=== PATIENT | female | born 1930 | race Hispanic/Latino ===

== ENCOUNTER 2017-10-21 08:00 | Outpatient (CLI) | payer MEDICARE, OTHER | END 2017-10-21 08:01 | disposition home or self-care (01) | LOC: BICMAMMO 08:00 | PROVIDERS: ATTEND Internal Medicine Hematology & Oncology | DX: N64.59 Other signs and symptoms in breast (principal) | CPT/HCPCS: G0204; G0279; 77066 ==

== ENCOUNTER 2018-01-11 16:46 | Outpatient (CLI) | payer MEDICARE, OTHER | END 2018-01-11 16:47 | disposition home or self-care (01) | LOC: BICRAD 16:46 | PROVIDERS: ATTEND Family Medicine | DX: J32.9 Chronic sinusitis, unspecified (principal) | CPT/HCPCS: 71046 ==

== ENCOUNTER 2018-08-23 05:32 | Emergency (ER) | payer MEDICARE, OTHER ==
[2018-08-23] MEDS ORDERED: Diazepam 5 MG TAB ONE (06:23)
--- NOTE | 2018-08-27 23:28 | EKG ---
Test Reason : ALLERGIC REACTION Blood Pressure : / mmHG Vent. Rate : 075 BPM Atrial Rate : 075 BPM P-R Int : 168 ms QRS Dur : 136 ms QT Int : 438 ms P-R-T Axes : 071 -53 026 degrees QTc Int : 489 ms Sinus rhythm with marked sinus arrhythmia Left axis deviation Right bundle branch block Abnormal ECG Confirmed by SHERYL OQUENDO ([id number]), news videotape editor EARNEST WRIGHT ([id number]) on 08/27/2018 11:28:38 PM Referred By: Confirmed By:SHERYL OQUENDO
== END 2018-08-23 08:01 | disposition home or self-care (01) ==
LOC: ERS 05:32
DX: L29.9 Pruritus, unspecified (principal); R20.2 Paresthesia of skin; T36.8X5A Adverse effect of other systemic antibiotics, initial encounter; I10 Essential (primary) hypertension; Z79.899 Other long term (current) drug therapy
CPT/HCPCS: 93005

== ENCOUNTER 2018-10-31 10:17 | Outpatient (CLI) | payer MEDICARE, OTHER | END 2018-10-31 10:18 | disposition home or self-care (01) | LOC: BICMAMMO 10:17 | PROVIDERS: ATTEND Family Medicine | DX: Z08 Encounter for follow-up examination after completed treatment for malignant neoplasm (principal); Z85.9 Personal history of malignant neoplasm, unspecified; Z85.3 Personal history of malignant neoplasm of breast; Z85.528 Personal history of other malignant neoplasm of kidney | CPT/HCPCS: 77066; G0279 ==

== ENCOUNTER 2019-03-09 11:22 | Emergency (ER) | payer MEDICARE, OTHER ==
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
[2019-03-09] MEDS ORDERED: hydrALAZINE 20 MG/ML VIAL ONE (14:44)
--- NOTE | 2019-03-11 11:19 | EKG ---
Test Reason : Blood Pressure : / mmHG Vent. Rate : 092 BPM Atrial Rate : 092 BPM P-R Int : 182 ms QRS Dur : 124 ms QT Int : 412 ms P-R-T Axes : 065 -65 008 degrees QTc Int : 509 ms Sinus rhythm with Premature atrial complexes Possible Left atrial enlargement Left axis deviation Right bundle branch block Abnormal ECG Confirmed by DR. Amaury KIM ([id number]) on 03/11/2019 11:19:12 AM Referred By: Confirmed By:DR. Amaury KIM
== END 2019-03-09 15:42 | disposition home or self-care (01) ==
LOC: ERS 11:22
DX: I10 Essential (primary) hypertension (principal); Z79.899 Other long term (current) drug therapy; V43.62XA Car passenger injured in collision with other type car in traffic accident, initial encounter
CPT/HCPCS: 71046; 72125; 72128; 93005; 96374; J0360

== ENCOUNTER 2019-07-21 10:12 | Outpatient (CLI) | payer MEDICARE, OTHER ==
--- NOTE | 2019-07-21 14:01 | NM ---
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 No other abnormal areas of tracer localization are seen in the skeleton to suggest metastatic disease . Tracer excretion through the kidneys is within normal limits. IMPRESSION: No scintigraphic evidence of osseous metastatic disease.
== END 2019-07-21 10:13 | disposition home or self-care (01) ==
LOC: NM 10:12
PROVIDERS: ATTEND Internal Medicine Hematology & Oncology
DX: C15.4 Malignant neoplasm of middle third of esophagus (principal); C64.1 Malignant neoplasm of right kidney, except renal pelvis; M25.552 Pain in left hip
CPT/HCPCS: 78306; A9503

== ENCOUNTER 2019-11-07 13:08 | Outpatient (CLI) | payer MEDICARE, OTHER ==
--- NOTE | 2019-11-07 13:37 | MMO ---
Bilateral MAMMO Bilat Diag [facility]. CLINICAL HISTORY: Patient is 89 years old and is seen for diagnostic exam. The patient has no family history of breast cancer. The patient has a history of kidney cancer. The patient has a history of right Ultrasound Guided Core Biopsy in Feb, 2016 - malignant and right Excisional Biopsy in 2016 - malignant. VIEWS: The views performed were: bilateral craniocaudal with tomosynthesis; bilateral mediolateral oblique with tomosynthesis; and bilateral mediolateral with tomosynthesis. FILMS COMPARED: The present examination has been compared to prior imaging studies performed at [facility] on 05/21/2016, 10/21/2017 and 10/31/2018, and at [facility] on 03/03/2016. This study has been interpreted with the assistance of computer-aided detection. MAMMOGRAM FINDINGS: The breasts are almost entirely fat. Finding 1: There are stable benign appearing calcifications seen in both breasts. Finding 2: There is a stable intramammary lymph node seen in the right breast. There are no suspicious masses, suspicious calcifications, or new areas of architectural distortion. IMPRESSION: THERE IS NO MAMMOGRAPHIC EVIDENCE OF MALIGNANCY. A ROUTINE FOLLOW-UP MAMMOGRAM IN 1 YEAR IS RECOMMENDED. THE RESULTS OF THIS EXAM WERE SENT TO THE PATIENT. ACR BI-RADS Category 2 - Benign finding MAMMOGRAPHY NOTE: 1. A negative mammogram report should not delay a biopsy if a dominant of clinically suspicious mass is present. 2. Approximately 10% to 15% of breast cancers are not detected by mammography. 3. Adenosis and dense breasts may obscure an underlying neoplasm. Reported by: SHAVONNE GOMEZ MD Electonically Signed: [id number]
== END 2019-11-07 13:09 | disposition home or self-care (01) ==
LOC: BICMAMMO 13:08
PROVIDERS: ATTEND Family Medicine
DX: C50.911 Malignant neoplasm of unspecified site of right female breast (principal)
CPT/HCPCS: 77066; G0279

== ENCOUNTER 2020-10-28 09:45 | Outpatient (CLI) | payer MEDICARE, OTHER ==
--- NOTE | 2020-10-28 10:16 | MMO ---
Bilateral MAMMO Bilat Diag [facility]DI[facility]NES. CLINICAL HISTORY: Patient is 89 years old and is seen for diagnostic exam. The patient has no family history of breast cancer. The patient has a history of kidney cancer. The patient has a history of right Ultrasound Guided Core Biopsy in Feb, 2016 - malignant and right Excisional Biopsy in 2016 - malignant. VIEWS: The views performed were: bilateral craniocaudal with tomosynthesis; bilateral mediolateral oblique with tomosynthesis; and bilateral mediolateral with tomosynthesis. FILMS COMPARED: The present examination has been compared to prior imaging studies performed at [facility] on 05/21/2016, 10/21/2017, 10/31/2018 and 11/07/2019. This study has been interpreted with the assistance of computer-aided detection. MAMMOGRAM FINDINGS: There are scattered fibroglandular densities. There is a stable post-surgical scar seen in the right breast. There are no suspicious masses, suspicious calcifications, or new areas of architectural distortion. IMPRESSION: THERE IS NO MAMMOGRAPHIC EVIDENCE OF MALIGNANCY. A ROUTINE FOLLOW-UP MAMMOGRAM IN 1 YEAR IS RECOMMENDED. THE RESULTS OF THIS EXAM WERE SENT TO THE PATIENT. ACR BI-RADS Category 2 - Benign finding MAMMOGRAPHY NOTE: 1. A negative mammogram report should not delay a biopsy if a dominant of clinically suspicious mass is present. 2. Approximately 10% to 15% of breast cancers are not detected by mammography. 3. Adenosis and dense breasts may obscure an underlying neoplasm. Reported by: JANET TRAN MD Electonically Signed: [id number]
== END 2020-10-28 09:46 | disposition home or self-care (01) ==
LOC: BICMAMMO 09:45
PROVIDERS: ATTEND Family Medicine
DX: Z08 Encounter for follow-up examination after completed treatment for malignant neoplasm (principal); Z85.3 Personal history of malignant neoplasm of breast
CPT/HCPCS: 77066; G0279

== ENCOUNTER 2021-11-03 10:13 | Outpatient (CLI) | payer MEDICARE, OTHER | END 2021-11-03 10:14 | disposition home or self-care (01) | LOC: BICMAMMO 10:13 | PROVIDERS: ATTEND Family Medicine | DX: Z12.31 Encounter for screening mammogram for malignant neoplasm of breast (principal); Z85.528 Personal history of other malignant neoplasm of kidney | CPT/HCPCS: 77063; 77067 ==